=== PATIENT | female | born 1950 | race Caucasian/White ===

== ENCOUNTER 2017-06-26 17:40 | Emergency (ER) | payer OTHER, MEDICARE ==
[2017-06-26 17:46] VITALS: BP 167/87; PULSE 82; RESP 16; TEMP 98.7; O2SAT 97
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
[2017-06-26] MEDS ORDERED: MEDI220T PO (20:35)
== END 2017-06-26 21:54 | disposition home or self-care (01) ==
LOC: PHEFT 17:40
DX: S82.831A Other fracture of upper and lower end of right fibula, initial encounter for closed fracture (principal); V28.5XXA Motorcycle passenger injured in noncollision transport accident in traffic accident, initial encounter
CPT/HCPCS: 29515; 73610; 73630; 99283; E0113